=== PATIENT | male | born 1940 | race Caucasian/White ===

== ENCOUNTER 2017-08-01 22:59 | Emergency (ER) | payer MEDICARE ==
[~2017-08-01] VITALS: Ht 177.8 cm; Wt 81.6 kg
--- NOTE | 2017-08-02 02:07 | Diagnostic Imaging Report ---
EXAMINATION: CHEST 2 VIEWS INDICATION: Congestion. COMPARISON: None FINDINGS: TUBES and LINES: None. LUNGS: Lungs are well inflated. Few left upper lobe peripheral calcified granulomas. There is no evidence of pneumonia or pulmonary edema. PLEURA: No pleural effusion or pneumothorax. HEART AND MEDIASTINUM: The cardiomediastinal silhouette is unremarkable. BONES AND SOFT TISSUES: No acute osseous lesion. Kyphotic deformity of the thoracic spine Soft tissues are unremarkable. UPPER ABDOMEN: No free air under the diaphragm. IMPRESSION: No acute thoracic abnormality. Signed by: Dr. Aj Bowling M.D. on 08/02/2017 2:04 AM
[2017-08-02 04:49] VITALS: BP 123/69
== END 2017-08-02 04:58 | disposition home or self-care (01) ==
LOC: ER 22:59
DX: R50.9 Fever, unspecified (principal); R05 Cough; J10.1 Influenza due to other identified influenza virus with other respiratory manifestations; I10 Essential (primary) hypertension
CPT/HCPCS: 71020; 93005; 99283